=== PATIENT | female | born 1965 | race Caucasian/White ===

== ENCOUNTER 2020-01-22 11:54 | Emergency (ER) | payer BC ==
[~2020-01-22 11:54] MED LIST: Ondansetron 4 MG Tab.DIS ONE
[2020-01-22] MEDS: Sodium Chloride 0.9% 1,000 ML IV ONE (14:02)
[2020-01-22] MEDS: Ondansetron 4 MG Tab.DIS ONE (14:03)
[2020-01-22] MEDS ORDERED: Potassium Chloride 40 MEQ/20 ML SDV IV ONE (15:00)
[2020-01-22] MEDS: Acetaminophen/Codeine 300-30 MG Tab ONE (15:01)
[2020-01-22] MEDS: Potassium Chloride Riders 100 ML ONE (15:02)
[2020-01-22] MEDS: Potassium Chloride 20 MEQ Tab.ER ONE (15:11)
[2020-01-22] MEDS ORDERED: Acetaminophen/Codeine 300-30 MG Tab PO ONE (15:57)
[2020-01-22] MEDS ORDERED: Sodium Chloride 0.9% 1,000 ML IV ONE (15:57)
[2020-01-22] MEDS ORDERED: Ondansetron 4 MG Tab.DIS PO ONE (15:57)
[2020-01-22] MEDS ORDERED: Potassium Chloride 20 MEQ Tab.ER PO ONE (15:59)
--- NOTE | 2020-01-22 16:06 | EDM.PDOC ---
ED HPI GENERAL MEDICAL PROBLEM - General Chief Complaint: General Stated Complaint: ILL Time Seen by Provider: 01/22/20 12:30 Source of Information: Reports: Patient History Limitations: Reports: No Limitations - History of Present Illness INITIAL COMMENTS - FREE TEXT/NARRATIVE: Patient with nausea and watery diarrhea since last night. She was seen for chest pain yesterday and had a normal workup. Patient denies any fever, cough, SOB, chest pain, abdominal pain, vomiting, or rash. No contact with anyone that has tested positive for COVID. Patient also with generalized body aches. - Related Data Allergies Allergy/AdvReac Type Severity Reaction Status Date / Time Sulfa (Sulfonamide Allergy Cannot Verified 09/26/14 12:49 Antibiotics) Remember Home Meds: Home Meds Aspirin [Halfprin] 81 mg PO DAILY 09/26/14 [History] Estrogens, Conjugated [Premarin] 0.625 mg PO DAILY 09/26/14 [History] Hydrochlorothiazide 25 mg PO DAILY 09/26/14 [History] Past Medical History HEENT History: Reports: None Cardiovascular History: Reports: Other (See Below) Other Cardiovascular History: LBBB on 01/21/20 Musculoskeletal History: Reports: Neck Pain, Chronic - Past Surgical History HEENT Surgical History: Reports: None Cardiovascular Surgical History: Reports: None Social & Family History - Family History Family Medical History: Noncontributory - Tobacco Use Smoking Status *Q: Never Smoker Second Hand Smoke Exposure: Yes - Caffeine Use Caffeine Use: Reports: Coffee - Alcohol Use Days Per Week of Alcohol Use: 3 Number of Drinks Per Day: 1 Total Drinks Per Week: 3 - Recreational Drug Use Recreational Drug Use: No ED ROS GENERAL - Review of Systems Review Of Systems: Comprehensive ROS is negative, except as noted in HPI. ED EXAM, GENERAL - Physical Exam Exam: See Below Exam Limited By: No Limitations General Appearance: Alert, No Apparent Distress Respiratory/Chest: No Respiratory Distress, Lungs Clear, Normal Breath Sounds, No Accessory Muscle Use, Chest Non-Tender Cardiovascular: Normal Peripheral Pulses, Regular Rate, Rhythm, No Edema, No Gallop, No JVD, No Murmur, No Rub Peripheral Pulses: 2+: Radial (L), Radial (R), Posterior Tibial (L), Posterior T ibial (R) GI/Abdominal: Normal Bowel Sounds, Soft, Non-Tender, No Organomegaly, No Distention Neurological: Alert, Oriented, Normal Cognition Skin Exam: Warm, Dry, Intact, Normal Color, No Rash Lymphatic: No Adenopathy Course - Vital Signs Text/Narrative:: Patient had labs done. 1 L bolus given, as well as, zofran. Patient able to sip water without difficulty. Patient found to have hyponatremia and hypokalemia. she is feeling better. Another 1 L bolus and potassium given. Patient given single tylenol #3 for body aches, unable to take NSAIDs. Patient is feeling better. Last Recorded V/S: Last Vital Signs Temp 38.1 C 01/22/20 13:47 Pulse 68 01/22/20 13:47 Resp 16 01/22/20 13:47 BP 115/84 01/22/20 13:47 Pulse Ox 97 01/22/20 13:47 - Orders/Labs/Meds Orders: Active Orders 24 hr Category Date Time Status Potassium Chloride Med 01/22/20 15:00 Once 20 meq IV ONETIME ONE Potassium Chloride [Klor-Con M20] Med 01/22/20 15:59 Once 20 meq PO ONETIME ONE Medication Orders Potassium Chloride (Potassium Chloride) 20 meq IV ONETIME ONE Stop: 01/22/20 15:01 Labs: Laboratory Tests 01/22/20 01/22/20 01/22/20 Range/Units 12:40 14:00 14:00 WBC 8.1 D (4.0-11.0) K/uL RBC 4.71 (3.80-5.80) M/uL Hgb 14.1 (11.5-16.5) g/dL Hct 41.1 (37.0-47.0) % MCV 87 (76-96) fL MCH 29.9 (27.0-32.0) pg MCHC 34.3 (31.0-35.0) g/dL RDW 13.0 (11.0-16.0) % Plt Count 209 D (150-500) K/uL MPV 10.4 H (6.0-10.0) fL Neut % (Auto) 82.1 H (45.0-70.0) % Lymph % (Auto) 11.7 L (20.0-40.0) % Clinch % (Auto) 6.1 (3.0-10.0) % Eos % (Auto) 0.0 L (1.0-5.0) % Baso % (Auto) 0.1 (0.0-0.5) % Neut # (Auto) 6.68 (2.00-7.50) K/uL Lymph # (Auto) 0.95 L (1.50-4.00) K/uL Clinch # (Auto) 0.50 (0.20-0.80) K/uL Eos # (Auto) 0.00 L (0.04-0.40) K/uL Baso # (Auto) 0.01 L (0.02-0.10) K/uL Sodium 131 L (136-145) mmol/L Potassium 3.1 L (3.5-5.1) mmol/L Chloride 98 (98-107) mmol/L Carbon Dioxide 27.1 (21.0-32.0) mmol/L Anion Gap 9.0 (5.0-15.0) mmol/L BUN 12 D (8-26) mg/dL Creatinine 1.06 H D (0.55-1.02) mg/dL Est Cr Clr Drug Dosing TNP Estimated GFR (MDRD) 54 L (>60) MLS/MIN BUN/Creatinine Ratio 11.3 (6-25) Glucose 128 H D (74-100) mg/dL Calcium 8.2 L (8.5-10.1) mg/dL Total Bilirubin 0.3 D (0.0-1.0) mg/dL AST 27 (15-37) U/L ALT 38 (12-78) U/L Alkaline Phosphatase 51 (46-116) U/L Total Protein 7.0 (6.4-8.2) g/dL Albumin 3.2 L (3.4-5.0) g/dL Globulin 3.8 (2.2-4.2) g/dL Albumin/Globulin Ratio 0.8 (0.8-2.0) SARS-CoV-2 RNA (RT-PCR) Negative Meds: Medications Generic Name Dose Route Start Last Admin Trade Name Freq PRN Reason Stop Dose Admin Potassium Chloride 20 meq 01/22/20 15:00 Potassium Chloride IV 01/22/20 15:01 ONETIME ONE Discontinued Medications Generic Name Dose Route Start Last Admin Trade Name Freq PRN Reason Stop Dose Admin Acetaminophen/Codeine Phosphate Confirm 01/22/20 14:55 01/22/20 15:01 Tylenol With Codeine No.3 300mg/30mg Administered 01/22/20 14:56 1 tab Dose Administration 1 tab .ROUTE .STK-MED ONE Acetaminophen/Codeine Phosphate 1 tab 01/22/20 15:57 Tylenol With Codeine No.3 300mg/30mg PO 01/22/20 15:58 ONETIME ONE Sodium Chloride 1,000 mls @ 1,000 mls/sec 01/22/20 13:55 01/22/20 14:02 Normal Saline IV 01/22/20 13:56 1,000 mls/sec .BOLUS ONE Administration Potassium Chloride Confirm 01/22/20 15:00 01/22/20 15:02 Kcl 10 Meq In Water 50 Ml Administered 01/22/20 15:01 100 mls/hr Dose Administration 100 mls @ as directed .ROUTE .STK-MED ONE Sodium Chloride 1,000 mls @ 1,000 mls/sec 01/22/20 15:57 Normal Saline IV 01/22/20 15:58 .BOLUS ONE Ondansetron HCl Confirm 01/22/20 13:55 01/22/20 14:03 Zofran Odt Administered 01/22/20 13:56 4 mg Dose Administration 4 mg .ROUTE .STK-MED ONE Ondansetron HCl 4 mg 01/22/20 15:57 Zofran Odt PO 01/22/20 15:58 ONETIME ONE Potassium Chloride Confirm 01/22/20 14:56 01/22/20 15:11 Klor-Con M20 Administered 01/22/20 14:57 40 meq Dose Administration 40 meq .ROUTE .STK-MED ONE Departure - Departure Time of Disposition: 16:15 Disposition: Home, Self-Care 01 Condition: Good Clinical Impression: Diarrhea Qualifiers: Diarrhea type: unspecified type Qualified Code(s): R19.7 - Diarrhea, unspeci fied - Discharge Information *PRESCRIPTION DRUG MONITORING PROGRAM REVIEWED*: Not Applicable *COPY OF PRESCRIPTION DRUG MONITORING REPORT IN PATIENT KANA: Not Applicable Instructions: Diarrhea, Adult, [id number], Food Choices to Help Relieve Diarrhea, Adult Referrals: PCP,None [Primary Care Provider] - Sepsis Event Note (ED) - Evaluation Sepsis Screening Result: No Definite Risk - Focused Exam Vital Signs: Vital Signs Temp Pulse Resp BP Pulse Ox 01/22/20 13:47 38.1 C 68 16 115/84 97 - My Orders Last 24 Hours: My Active Orders 01/22/20 15:00 Potassium Chloride 20 meq IV ONETIME ONE 01/22/20 15:59 Potassium Chloride [Klor-Con M20] 20 meq PO ONETIME ONE - Assessment/Plan Last 24 Hours: My Active Orders 01/22/20 15:00 Potassium Chloride 20 meq IV ONETIME ONE 01/22/20 15:59 Potassium Chloride [Klor-Con M20] 20 meq PO ONETIME ONE Plan: Will send patient home with zofran for nausea. BRAT diet for diarrhea. Plenty of fluids and gatorades. Follow up with PCP next week. Return to the ED for fever >102, unable to tolerate fluids, difficulty breathing/swallowing, and/or persistent/worsening symptoms.
[2020-01-22] MEDS ORDERED: Potassium Chloride Riders 50 ML IV SCH (17:00)
== END 2020-01-22 16:54 | disposition home or self-care (01) ==
LOC: LB.ED 11:54
DX: R19.7 Diarrhea, unspecified (principal); Z20.828 Contact with and (suspected) exposure to other viral communicable diseases; Z79.82 Long term (current) use of aspirin; Z79.899 Other long term (current) drug therapy; Z77.22 Contact with and (suspected) exposure to environmental tobacco smoke (acute) (chronic)
CPT/HCPCS: 36415; 80053; 85025; 87635; 99284; A9270; J3480; J7030; U0002

== ENCOUNTER 2020-05-01 14:08 | Emergency (ER) | payer BC, OTHER ==
[~2020-05-01 14:08] MED LIST changes: +Ketorolac 60 MG/2 ML SDV IM ONE; +Metoclopramide 10 MG/2 ML SDV IM ONE; -Ondansetron 4 MG Tab.DIS ONE; +diphenhydrAMINE 50 MG/ML SDV IM ONE
[2020-05-01] MEDS ORDERED: Ketorolac 60 MG/2 ML SDV ONE (14:27)
[2020-05-01] MEDS ORDERED: diphenhydrAMINE 50 MG/ML SDV ONE (14:27)
[2020-05-01] MEDS ORDERED: Promethazine 25 MG/ML SDV IM ONE (14:47)
--- NOTE | 2020-05-01 14:56 | EDM.PDOC ---
ED HPI GENERAL MEDICAL PROBLEM - General Chief Complaint: General Stated Complaint: HEADACHE Time Seen by Provider: 05/01/20 14:15 Source of Information: Reports: Patient History Limitations: Reports: No Limitations - History of Present Illness INITIAL COMMENTS - FREE TEXT/NARRATIVE: Patient is a 54 y/o female who presents with migraine headache. The headache is achy, behind the left eye and left frontal, and constant. Associated nausea. Patient has gotten these headaches in the past before. No vision changes, no eye pain, and no neck pain. Left Headache Pain Score (Numeric/FACES): 9 - Related Data Allergies Allergy/AdvReac Type Severity Reaction Status Date / Time Sulfa (Sulfonamide Allergy Cannot Verified 05/01/20 14:36 Antibiotics) Remember Home Meds: Home Meds Estrogens, Conjugated [Premarin] 0.3 mg PO DAILY 09/26/14 [History] Hydrochlorothiazide 12.5 mg PO DAILY 09/26/14 [History] RX: Aspirin [Halfprin] 81 mg PO DAILY 09/26/14 [History] Diltiazem [Cardizem CD] 120 mg PO DAILY 05/01/20 [History] RX: Zinc 50 mg PO DAILY 05/01/20 [History] Past Medical History HEENT History: Reports: None Cardiovascular History: Reports: Other (See Below) Other Cardiovascular History: LBBB on 01/21/20 Musculoskeletal History: Reports: Neck Pain, Chronic - Past Surgical History HEENT Surgical History: Reports: None Cardiovascular Surgical History: Reports: None Social & Family History - Family History Family Medical History: Noncontributory - Caffeine Use Caffeine Use: Reports: Coffee ED ROS GENERAL - Review of Systems Review Of Systems: See Below Constitutional: Reports: No Symptoms HEENT: Reports: No Symptoms Respiratory: Reports: No Symptoms Cardiovascular: Reports: No Symptoms GI/Abdominal: Reports: No Symptoms Musculoskeletal: Reports: No Symptoms Skin: Reports: No Symptoms Neurological: Reports: Headache ED EXAM, GENERAL - Physical Exam Exam: See Below Exam Limited By: No Limitations General Appearance: Alert, No Apparent Distress Eye Exam: Bilateral Eye: EOMI, PERRL Head: Atraumatic, Normocephalic Neck: Normal Inspection, Supple, Non-Tender, Full Range of Motion Respiratory/Chest: No Respiratory Distress, No Accessory Muscle Use Neurological: Alert, Oriented, CN II-XII Intact, Normal Cognition, Normal Gait, No Motor/Sensory Deficits Psychiatric: Normal Affect, Normal Mood Skin Exam: Warm, Dry, Intact, Normal Color, No Rash Course - Vital Signs Text/Narrative:: Patient given toradol, benadryl, and phenergan. She is feeling a lot better. Last Recorded V/S: Last Vital Signs Temp 37.4 C 05/01/20 14:12 Pulse 71 05/01/20 14:12 Resp 18 05/01/20 14:12 BP 180/99 H 05/01/20 14:12 Pulse Ox 100 05/01/20 14:12 - Orders/Labs/Meds Meds: Medications Discontinued Medications Generic Name Dose Route Start Last Admin Trade Name Freq PRN Reason Stop Dose Admin Diphenhydramine HCl 25 mg 05/01/20 14:08 05/01/20 14:26 Benadryl IM 05/01/20 14:09 25 mg ONETIME ONE Administration Diphenhydramine HCl Confirm 05/01/20 14:27 05/01/20 14:26 Benadryl Administered 05/01/20 14:28 Not Given Dose 50 mg .ROUTE .STK-MED ONE Ketorolac Tromethamine 60 mg 05/01/20 14:08 05/01/20 14:24 Toradol IM 05/01/20 14:09 60 mg ONETIME ONE Administration Ketorolac Tromethamine Confirm 05/01/20 14:27 05/01/20 14:26 Toradol Administered 05/01/20 14:28 Not Given Dose 60 mg .ROUTE .STK-MED ONE Metoclopramide HCl 10 mg 05/01/20 14:08 Reglan IM 05/01/20 14:09 ONETIME ONE Promethazine HCl 12.5 mg 05/01/20 14:47 Phenergan IM 05/01/20 14:48 ONETIME ONE Departure - Departure Time of Disposition: 15:00 Disposition: Home, Self-Care 01 Condition: Good Clinical Impression: Headache Qualifiers: Headache type: unspecified Headache chronicity pattern: acute headache Intractability: not intractable Qualified Code(s): R51.9 - Headache, unspecified - Discharge Information *PRESCRIPTION DRUG MONITORING PROGRAM REVIEWED*: Not Applicable *COPY OF PRESCRIPTION DRUG MONITORING REPORT IN PATIENT KANA: Not Applicable Instructions: Migraine Headache Referrals: PCP,None [Primary Care Provider] - Forms: ED Department Discharge Additional Instructions: Discharge home. Rest Follow up with your primary provider as needed. Sepsis Event Note (ED) - Evaluation Sepsis Screening Result: No Definite Risk - Focused Exam Vital Signs: Vital Signs Temp Pulse Resp BP Pulse Ox 05/01/20 14:12 37.4 C 71 18 180/99 H 100
[2020-05-01] MEDS ORDERED: Promethazine 25 MG/ML SDV ONE (14:59)
== END 2020-05-01 15:10 | disposition home or self-care (01) ==
LOC: LB.ED 14:08
DX: R51.9 Headache, unspecified (principal); R11.0 Nausea; Z88.2 Allergy status to sulfonamides; Z79.82 Long term (current) use of aspirin; Z79.899 Other long term (current) drug therapy
CPT/HCPCS: 96372; 99283; J1200; J1885; J2550

== ENCOUNTER 2020-05-08 00:32 | Emergency (ER) | payer BC ==
[2020-05-08] MEDS ORDERED: Ketorolac 60 MG/2 ML SDV IVPUSH ONE (00:46)
[2020-05-08] MEDS ORDERED: diphenhydrAMINE 50 MG/ML SDV IVPUSH ONE (00:47)
[2020-05-08] MEDS ORDERED: Metoclopramide 10 MG/2 ML SDV IVPUSH ONE (00:47)
[2020-05-08] MEDS ORDERED: Sodium Chloride 0.9% 10 ML Syringe FLUSH PRN (00:49)
--- NOTE | 2020-05-08 00:53 | EDM.PDOC ---
ED HPI GENERAL MEDICAL PROBLEM - General Chief Complaint: Headache Stated Complaint: HEADACHE Time Seen by Provider: 05/08/20 00:40 Source of Information: Reports: Patient History Limitations: Reports: No Limitations - History of Present Illness INITIAL COMMENTS - FREE TEXT/NARRATIVE: The patient is a 54-year-old white female with history of headache the past month. She reports the headaches are present almost every day. Headache seems to be worse at night when she is trying to sleep. She has had some slight nausea with a headache at times and at times she has had some photophobia. She was treated here in the emergency department for this headache with Toradol Benadryl and Phenergan with good relief. She states the headaches are worse than prior headaches. Headache is located in the left frontal area behind her left eye radiating back to the posterior aspect of the left side of her head. Patient has history of removal of benign pituitary tumor years ago. 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 (see below) (Treated with Toradol, Benadryl and Phenergan at last visit with good response) Left Headache Pain Score (Numeric/FACES): 3 - Related Data Allergies Allergy/AdvReac Type Severity Reaction Status Date / Time duloxetine Allergy Cannot Verified 05/08/20 03:14 Remember gabapentin Allergy Cannot Verified 05/08/20 03:12 Remember lisinopril Allergy Cough Verified 05/08/20 03:11 Sulfa (Sulfonamide Allergy Cannot Verified 05/01/20 14:36 Antibiotics) Remember tramadol Allergy Cannot Verified 05/08/20 03:11 Remember Home Meds: Home Meds Aspirin [Halfprin] 81 mg PO DAILY 09/26/14 [History] Estrogens, Conjugated [Premarin] 0.3 mg PO DAILY 09/26/14 [History] Hydrochlorothiazide 12.5 mg PO DAILY 09/26/14 [History] Diltiazem [Cardizem CD] 120 mg PO DAILY 05/01/20 [History] Zinc 50 mg PO DAILY 05/01/20 [History] Past Medical History HEENT History: Reports: None Cardiovascular History: Reports: Other (See Below) Other Cardiovascular History: LBBB on 01/21/20 Musculoskeletal History: Reports: Neck Pain, Chronic - Past Surgical History Head Surgeries/Procedures: Reports: Other (See Below) (Past history of benign tumor on her pituitary gland) HEENT Surgical History: Reports: None Cardiovascular Surgical History: Reports: None Social & Family History - Family History Family Medical History: Noncontributory - Caffeine Use Caffeine Use: Reports: Coffee ED ROS GENERAL - Review of Systems Review Of Systems: See Below Constitutional: Denies: Fever, Chills, Weakness HEENT: Denies: No Symptoms, Ear Discharge, Ear Pain Respiratory: Denies: Shortness of Breath, Cough Cardiovascular: Denies: Chest Pain GI/Abdominal: Reports: Nausea. Denies: Abdominal Pain, Vomiting Musculoskeletal: Reports: Other (Chronic back pain) Skin: Reports: No Symptoms Neurological: Reports: Headache. Denies: Confusion, Numbness, Trouble Speaking, Difficulty Walking, Gait Disturbance Psychiatric: Denies: No Symptoms - Physical Exam Exam: See Below Exam Limited By: No Limitations General Appearance: Alert, WD/WN, No Apparent Distress Eye Exam: Bilateral Eye: EOMI, Normal Inspection, PERRL Ears: Normal External Exam, Normal TMs Nose: Normal Inspection, Normal Mucosa Throat/Mouth: Normal Inspection, Normal Teeth, Normal Gums, Normal Oropharynx, No Airway Compromise Head Exam: Atraumatic, Normocephalic. No: Scalp Tenderness, Facial Swelling, Facial Tenderness Neck: Normal Inspection, Supple, Non-Tender, Other (Limited extension of the neck status post cervical fusion 1 year ago) Respiratory/Chest: No Respiratory Distress, Lungs Clear, Normal Breath Sounds, No Accessory Muscle Use, Chest Non-Tender Cardiovascular: Regular Rate, Rhythm GI/Abdominal: Soft, Non-Tender Neuro Exam (Abbreviated): Alert, Oriented, CN II-XII Intact, Normal Cognition, Normal Gait, No Motor/Sensory Deficits. No: Abnormal Gait (Romberg negative) Course - Vital Signs Text/Narrative:: Patient was initially treated with Toradol 15 mg IV, Benadryl 25 mg IV and Reglan 10 mg IV. She had a CT of her head without contrast which showed no acute intracranial abnormality Last Recorded V/S: Last Vital Signs Temp 98.4 F 05/08/20 00:36 Pulse 76 05/08/20 00:36 Resp 16 05/08/20 02:37 BP 139/99 H 05/08/20 02:37 Pulse Ox 99 05/08/20 00:36 - Orders/Labs/Meds Meds: Medications Discontinued Medications Generic Name Dose Route Start Last Admin Trade Name Belem PRN Reason Stop Dose Admin Diphenhydramine HCl 25 mg 05/08/20 00:47 05/08/20 01:13 Benadryl IVPUSH 05/08/20 00:48 25 mg ONETIME ONE Administration Sodium Chloride 1,000 mls @ 999 mls/hr 05/08/20 01:00 05/08/20 02:37 Normal Saline IV Infused ASDIRECTED NAVYA Infusion Ketorolac Tromethamine 15 mg 05/08/20 00:46 05/08/20 01:10 Toradol IVPUSH 05/08/20 00:47 15 mg ONETIME ONE Administration Metoclopramide HCl 10 mg 05/08/20 00:47 05/08/20 01:16 Reglan IVPUSH 05/08/20 00:48 10 mg ONETIME ONE Administration Sodium Chloride 10 ml 05/08/20 00:49 05/08/20 01:16 Saline Flush FLUSH 50 ml ASDIRECTED PRN Administration Keep Vein Open Departure - Departure Time of Disposition: 02:37 Disposition: Home, Self-Care 01 Condition: Good Clinical Impression: Migraine Migraine headache without aura Qualifiers: Status migrainosus presence: without status migrainosus Intractability: not intractable Qualified Code(s): G43.009 - Migraine without aura, not intractable, without status migrainosus - Discharge Information *PRESCRIPTION DRUG MONITORING PROGRAM REVIEWED*: Not Applicable *COPY OF PRESCRIPTION DRUG MONITORING REPORT IN PATIENT KANA: Not Applicable Instructions: Recurrent Migraine Headache, [id number] Referrals: PCP,None [Primary Care Provider] - Additional Instructions: Home to sleep tonight. Follow-up next week with your usual physician to consider referral to neurology and MRI of the head to rule out other causes of headache. Return as needed to the emergency department for headache
[2020-05-08] MEDS ORDERED: Sodium Chloride 0.9% 1,000 ML IV SCH (01:00)
--- NOTE | 2020-05-09 07:46 | CT ---
Date of Service: 05/08/20 Clinical Data: Left frontal headache for past month UNENHANCED BRAIN CT: Multislice acquisition through the brain without IV contrast was performed. No priors. No masses or mass effect. No intracranial hemorrhage. No evidence of acute or subacute infarct. No osseous abnormalities. IMPRESSION: No acute intracranial abnormalities. [id number] MTDD
== END 2020-05-08 02:37 | disposition home or self-care (01) ==
LOC: LB.ED 00:32
DX: G43.009 Migraine without aura, not intractable, without status migrainosus (principal); M54.9 Dorsalgia, unspecified; Z88.2 Allergy status to sulfonamides; Z88.5 Allergy status to narcotic agent; Z88.8 Allergy status to other drugs, medicaments and biological substances; Z79.82 Long term (current) use of aspirin
CPT/HCPCS: 70450; 96374; 96375; 99283; J1200; J1885; J2765; J7030; 99284

== ENCOUNTER 2020-05-27 15:29 | Emergency (ER) | payer BC ==
--- NOTE | 2020-05-27 16:15 | EDM.PDOC ---
ED HPI GENERAL MEDICAL PROBLEM - General Chief Complaint: Headache Stated Complaint: MIGRAINE Time Seen by Provider: 05/27/20 16:00 Source of Information: Reports: Patient History Limitations: Reports: No Limitations - History of Present Illness INITIAL COMMENTS - FREE TEXT/NARRATIVE: Patient has PMH of migraines. GRANT started earlier today after physical thearpy on her neck and left shoulder. This is a typical migraine per patient in the left side of her head, endorses photophobia and nausea. She denies any fever, CP, SOB, cough, weakness, visual changes. Onset: Today Quality: Reports: Same as Previous Episode, Sharp Severity: Moderate Improves with: Reports: None Worsens with: Reports: None Associated Symptoms: Reports: No Other Symptoms Treatments ENRICHMENT ASSISTANT: Reports: NSAIDS - Related Data Allergies Allergy/AdvReac Type Severity Reaction Status Date / Time duloxetine Allergy Cannot Verified 05/08/20 03:14 Remember gabapentin Allergy Cannot Verified 05/08/20 03:12 Remember lisinopril Allergy Cough Verified 05/08/20 03:11 Sulfa (Sulfonamide Allergy Cannot Verified 05/01/20 14:36 Antibiotics) Remember tramadol Allergy Cannot Verified 05/08/20 03:11 Remember Home Meds: Home Meds Aspirin [Halfprin] 81 mg PO DAILY 09/26/14 [History] Estrogens, Conjugated [Premarin] 0.3 mg PO DAILY 09/26/14 [History] Hydrochlorothiazide 12.5 mg PO DAILY 09/26/14 [History] Diltiazem [Cardizem CD] 120 mg PO DAILY 05/01/20 [History] Zinc 50 mg PO DAILY 05/01/20 [History] Past Medical History HEENT History: Reports: None Cardiovascular History: Reports: Other (See Below) Other Cardiovascular History: LBBB on 01/21/20 Other LEARNING DISABLED TEACHER History: hysterectomy Musculoskeletal History: Reports: Neck Pain, Chronic Other Musculoskeletal History: Fusion to vertebrae in neck Neurological History: Reports: Migraines - Past Surgical History Head Surgeries/Procedures: Reports: Other (See Below) HEENT Surgical History: Reports: None Cardiovascular Surgical History: Reports: None Social & Family History - Family History Family Medical History: Noncontributory - Caffeine Use Caffeine Use: Reports: Coffee ED ROS GENERAL - Review of Systems Review Of Systems: See Below Constitutional: Reports: No Symptoms HEENT: Reports: No Symptoms Respiratory: Reports: No Symptoms Endocrine: Reports: No Symptoms GI/Abdominal: Reports: No Symptoms Musculoskeletal: Reports: Neck Pain (chronic) Skin: Reports: No Symptoms Neurological: Reports: Headache Psychiatric: Reports: No Symptoms Hematologic/Lymphatic: Reports: No Symptoms - Physical Exam Exam: See Below Exam Limited By: No Limitations General Appearance: Alert, No Apparent Distress Eye Exam: Bilateral Eye: Normal Inspection Ears: Normal External Exam, Normal Canal, Normal TMs Nose: Normal Inspection Throat/Mouth: Normal Inspection, Normal Lips, Normal Gums, Normal Oropharynx, Normal Voice, No Airway Compromise Head Exam: Atraumatic Neck: Normal Inspection, Full Range of Motion Respiratory/Chest: No Respiratory Distress, Lungs Clear, Normal Breath Sounds Cardiovascular: Regular Rate, Rhythm, No Edema, No Murmur GI/Abdominal: Non-Tender Neuro Exam (Abbreviated): Alert, Oriented, Normal Cognition, Normal Gait, No Motor/Sensory Deficits Back Exam: Full Range of Motion Extremities: Normal Inspection, Normal Range of Motion Psychiatric: Normal Affect, Normal Mood Skin Exam: Warm, Dry, Intact Course - Orders/Labs/Meds Meds: Medications Discontinued Medications Generic Name Dose Route Start Last Admin Trade Name Belem PRN Reason Stop Dose Admin Diphenhydramine HCl Confirm 05/27/20 16:06 Benadryl Administered 05/27/20 16:07 Dose 50 mg .ROUTE .STK-MED ONE Ketorolac Tromethamine Confirm 05/27/20 16:06 Toradol Administered 05/27/20 16:07 Dose 30 mg .ROUTE .STK-MED ONE Promethazine HCl Confirm 05/27/20 16:06 Phenergan Administered 05/27/20 16:07 Dose 25 mg .ROUTE .STK-MED ONE Departure - Departure Time of Disposition: 16:30 Disposition: Home, Self-Care 01 Condition: Good Clinical Impression: Migraine - Discharge Information *PRESCRIPTION DRUG MONITORING PROGRAM REVIEWED*: Not Applicable *COPY OF PRESCRIPTION DRUG MONITORING REPORT IN PATIENT KANA: Not Applicable Referrals: PCP,None [Primary Care Provider] - Additional Instructions: Return to ED for any increased or new concerning symptoms. Drink plenty of fluid and rest. Follow up with your primary doctor next week if symptoms persist.
[2020-05-27 16:16] VITALS: BP 166/94; PULSE 65
[2020-05-27] MEDS: Ketorolac 30 MG/ML SDV ONE (16:24)
[2020-05-27] MEDS: Promethazine 25 MG/ML SDV ONE (16:24)
[2020-05-27] MEDS: diphenhydrAMINE 50 MG/ML SDV ONE (16:24)
[2020-05-27] MEDS: Promethazine 25 MG in Sodium Chloride 0.9% 50 ML IV PRN (17:45)
[2020-05-27] MEDS: diphenhydrAMINE 50 MG/ML SDV IVPUSH ONE (17:50)
[2020-05-27] MEDS: Ketorolac 60 MG/2 ML SDV IVPUSH ONE (17:52)
== END 2020-05-27 16:30 | disposition home or self-care (01) ==
LOC: LB.ED 15:29
DX: G43.909 Migraine, unspecified, not intractable, without status migrainosus (principal); G89.29 Other chronic pain; M54.2 Cervicalgia; Z88.5 Allergy status to narcotic agent; Z88.8 Allergy status to other drugs, medicaments and biological substances; Z88.2 Allergy status to sulfonamides
CPT/HCPCS: 99282; 99283; J1200; J1885; J2550

== ENCOUNTER 2020-05-28 00:11 | Emergency (ER) | payer BC ==
[2020-05-28] MEDS ORDERED: Ketorolac 60 MG/2 ML SDV IVPUSH ONE (00:41)
[2020-05-28] MEDS ORDERED: Sodium Chloride 0.9% 1,000 ML IV ONE (00:41)
[2020-05-28] MEDS ORDERED: Metoclopramide 10 MG/2 ML SDV IV PRN (00:41)
--- NOTE | 2020-05-28 00:47 | EDM.PDOC ---
ED HPI GENERAL MEDICAL PROBLEM - General Chief Complaint: Headache Stated Complaint: headache Time Seen by Provider: 05/28/20 00:30 Source of Information: Reports: Patient History Limitations: Reports: No Limitations - History of Present Illness INITIAL COMMENTS - FREE TEXT/NARRATIVE: 54 year old female presents to ED for the 2nd time today with GRANT. PMH migraines. She was medicated with IM medications toradol, compazine, and benadryl earlier today and DC from the ED with pain resolving. She states the GRANT returned tonight at 2230. It is the same left sided head pain with radiation into left side of neck. This pain she attributes to PT earlier today. Denies any CP, SOB, abd pain, visual changes, fever, stiff neck, cough, N/V/D. Tried an ice pack to her neck at home without relief. She has not taken any OTC pain medications. We discussed having a head CT, patient declines at this time. 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 - Related Data Allergies Allergy/AdvReac Type Severity Reaction Status Date / Time duloxetine Allergy Cannot Verified 05/08/20 03:14 Remember gabapentin Allergy Cannot Verified 05/08/20 03:12 Remember lisinopril Allergy Cough Verified 05/08/20 03:11 Sulfa (Sulfonamide Allergy Cannot Verified 05/01/20 14:36 Antibiotics) Remember tramadol Allergy Cannot Verified 05/08/20 03:11 Remember Home Meds: Home Meds Aspirin [Halfprin] 81 mg PO DAILY 09/26/14 [History] Estrogens, Conjugated [Premarin] 0.3 mg PO DAILY 09/26/14 [History] Hydrochlorothiazide 12.5 mg PO DAILY 09/26/14 [History] Diltiazem [Cardizem CD] 120 mg PO DAILY 05/01/20 [History] Zinc 50 mg PO DAILY 05/01/20 [History] Past Medical History HEENT History: Reports: None Cardiovascular History: Reports: Other (See Below) Other Cardiovascular History: LBBB on 01/21/20 Other [employer] History: hysterectomy Musculoskeletal History: Reports: Neck Pain, Chronic Other Musculoskeletal History: Fusion to vertebrae in neck Neurological History: Reports: Migraines - Past Surgical History Head Surgeries/Procedures: Reports: Other (See Below) HEENT Surgical History: Reports: None Cardiovascular Surgical History: Reports: None Social & Family History - Family History Family Medical History: Noncontributory - Caffeine Use Caffeine Use: Reports: Coffee ED ROS GENERAL - Review of Systems Review Of Systems: See Below Constitutional: Reports: No Symptoms HEENT: Reports: No Symptoms Respiratory: Reports: No Symptoms Cardiovascular: Reports: No Symptoms Endocrine: Reports: No Symptoms GI/Abdominal: Reports: No Symptoms : Reports: No Symptoms Musculoskeletal: Reports: Neck Pain Skin: Reports: No Symptoms Neurological: Reports: Headache Psychiatric: Reports: No Symptoms Hematologic/Lymphatic: Reports: No Symptoms Immunologic: Reports: No Symptoms - Physical Exam Exam: See Below Exam Limited By: No Limitations General Appearance: Alert, No Apparent Distress Eye Exam: Bilateral Eye: Normal Inspection, PERRL Ears: Normal External Exam Throat/Mouth: Normal Voice Head Exam: Atraumatic Neck: Normal Inspection, Full Range of Motion, Tender Lateral Respiratory/Chest: No Respiratory Distress, Lungs Clear, Normal Breath Sounds Cardiovascular: Normal Peripheral Pulses, Regular Rate, Rhythm, No Edema, No Murmur GI/Abdominal: Non-Tender Neuro Exam (Abbreviated): Alert, Oriented, CN II-XII Intact, Normal Cognition, No Motor/Sensory Deficits Back Exam: Full Range of Motion Extremities: Normal Inspection, Normal Range of Motion, Non-Tender, No Pedal Edema Psychiatric: Normal Affect, Normal Mood Skin Exam: Warm, Dry, Intact Course - Orders/Labs/Meds Orders: Active Orders 24 hr Category Date Time Status Metoclopramide [Reglan] Med 05/28/20 00:41 Active 10 mg IV Q8H PRN Medication Orders Metoclopramide HCl (Reglan) 10 mg IV Q8H PRN PRN Reason: Headache/Pain Meds: Medications Generic Name Dose Route Start Last Admin Trade Name Freq PRN Reason Stop Dose Admin Metoclopramide HCl 10 mg 05/28/20 00:41 Reglan IV Q8H PRN Headache/Pain Discontinued Medications Generic Name Dose Route Start Last Admin Trade Name Freq PRN Reason Stop Dose Admin Diphenhydramine HCl 25 mg 05/28/20 01:30 Benadryl IVPUSH 05/28/20 01:31 ONETIME ONE Diphenhydramine HCl Confirm 05/28/20 01:40 Benadryl Administered 05/28/20 01:41 Dose 50 mg .ROUTE .STK-MED ONE Sodium Chloride 1,000 mls @ 1,000 mls/hr 05/28/20 00:41 Normal Saline IV 05/28/20 01:40 .BOLUS ONE Ketorolac Tromethamine 15 mg 05/28/20 00:41 Toradol IVPUSH 05/28/20 00:42 ONETIME ONE Ketorolac Tromethamine Confirm 05/28/20 00:53 Toradol Administered 05/28/20 00:54 Dose 30 mg .ROUTE .STK-MED ONE Metoclopramide HCl Confirm 05/28/20 00:54 Reglan Administered 05/28/20 00:55 Dose 10 mg .ROUTE .STK-MED ONE Departure - Departure Time of Disposition: 02:05 Disposition: Home, Self-Care 01 Condition: Good Clinical Impression: Cluster headache syndrome Migraine headache without aura Qualifiers: Status migrainosus presence: without status migrainosus Intractability: not intractable Qualified Code(s): G43.009 - Migraine without aura, not intractable, without status migrainosus - Discharge Information *PRESCRIPTION DRUG MONITORING PROGRAM REVIEWED*: Not Applicable *COPY OF PRESCRIPTION DRUG MONITORING REPORT IN PATIENT KANA: Not Applicable Instructions: Cluster Headache, [id number], Recurrent Migraine Headache, [id number] Referrals: PCP,None [Primary Care Provider] - Forms: ED Department Discharge Additional Instructions: Follow up with neurology as planned. Return to ED if any increased or new concerning symptoms. - My Orders Last 24 Hours: My Active Orders 05/28/20 00:41 Metoclopramide [Reglan] 10 mg IV Q8H PRN - Assessment/Plan Last 24 Hours: My Active Orders 05/28/20 00:41 Metoclopramide [Reglan] 10 mg IV Q8H PRN Plan: Patient reports decreased pain and would like to DC home to sleep. She will return if GRANT increased or changes. Patient verbalized understanding.
[2020-05-28] MEDS ORDERED: Ketorolac 30 MG/ML SDV ONE (00:53)
[2020-05-28] MEDS ORDERED: Metoclopramide 10 MG/2 ML SDV ONE (00:54)
[2020-05-28] MEDS ORDERED: diphenhydrAMINE 50 MG/ML SDV IVPUSH ONE (01:30)
[2020-05-28] MEDS ORDERED: diphenhydrAMINE 50 MG/ML SDV ONE (01:40)
== END 2020-05-28 02:09 | disposition home or self-care (01) ==
LOC: LB.ED 00:11
DX: G43.009 Migraine without aura, not intractable, without status migrainosus (principal); G44.009 Cluster headache syndrome, unspecified, not intractable; Z88.8 Allergy status to other drugs, medicaments and biological substances; Z88.5 Allergy status to narcotic agent; Z88.2 Allergy status to sulfonamides; Z79.82 Long term (current) use of aspirin; Z79.899 Other long term (current) drug therapy
CPT/HCPCS: 96374; 96375; 99283; 99283-25; J1200; J1885; J2765; J7030